=== PATIENT | female | born 1945 | race African-American/Black ===

== ENCOUNTER 2021-04-06 19:15 | Inpatient (IN) | payer OTHER ==
[2021-04-06] MEDS ORDERED: LACTATED RINGERS SOLUTION 1000 ML INFUS.BAG IV ONE ×2 (20:57→22:01)
[2021-04-06] MEDS ORDERED: PIPERACILLIN/TAZOB 4.5 GM 4.5 GM in DEXTROSE 5%-WATER 100 ML IVPB ONE (20:58)
[2021-04-06] MEDS ORDERED: VANCOMYCIN 1 GM in D5W (PRE-DOCKED) 1,000 MG/250 ML IVPB ONE (20:58)
[2021-04-06 21:24] LABS: VENOUS BASE EXCESS 5.5 mmol/L (-2-2); VENOUS O2 SATURATION 97.8 % (70-80); VENOUS PCO2 39.6 mmHg (38-52); VENOUS PH 7.487 (7.310-7.410)
[2021-04-06 21:26] LABS: INR 1.64 (0.83-1.09); PROTHROMBIN TIME (PATIENT) 19.9 SEC (9.7-13.0)
[2021-04-06 21:27] LABS: EPI CELLS 5 /uL (0-25.1); HEMATOCRIT 27.3 % (32.4-45.2); HEMOGLOBIN 9.5 GM/dL (10.7-15.3); HYALINE CASTS 4 /uL (0-3.1); MCH 25.8 pg (25.7-33.7); MCHC 34.9 g/dl (32.0-36.0); MEAN CELL VOLUME 73.9 fl (80-96); MEAN PLT VOLUME 10.6 fl (7.5-11.1); PLATELET COUNT 82 10^3/uL (134-434); RDW 14.6 % (11.6-15.6); URINE APPEARANCE CLOUDY; URINE BACTERIA 2259 /uL (0-1359); URINE BILIRUBIN 1+ (NEGATIVE); URINE COLOR DK YELLOW; URINE GLUCOSE (UA) NEGATIVE (NEGATIVE); URINE KETONE NEGATIVE (NEGATIVE); URINE LEUK ESTERASE NEGATIVE (NEGATIVE); URINE NITRITE NEGATIVE (NEGATIVE); URINE PROTEIN 1+ (NEGATIVE); URINE WBC 8 /uL (0-25.8)
[2021-04-06 21:28] LABS: ACTIVATED PTT 24.7 SECONDS (25.2-36.5)
[2021-04-06 21:37] LABS: CHLORIDE 85 mmol/L (98-107); SODIUM 127 mmol/L (136-145)
[2021-04-06 21:40] LABS: ALBUMIN 1.6 g/dl (3.4-5.0); ANION GAP 16 MMOL/L (8-16); BLOOD UREA NITROGEN 65.4 mg/dL (7-18); CALCIUM 7.6 mg/dL (8.5-10.1); CO2 26 mmol/L (21-32); GLUCOSE,RANDOM 104 mg/dL (74-106)
[2021-04-06 21:43] LABS: CREATININE 2.2 mg/dL (0.55-1.3); SGPT/ALT 169 U/L (13-61)
[2021-04-06 21:44] LABS: BILIRUBIN,TOTAL 5.4 mg/dL (0.2-1); SGOT/AST 334 U/L (15-37)
[2021-04-06 21:46] LABS: ALK PHOS 213 U/L (45-117)
[2021-04-06 21:47] LABS: WHITE BLOOD COUNT 31.3 K/mm3 (4.0-10.0)
[2021-04-06] MEDS ORDERED: PIPERACILLIN/TAZOB 4.5 GM 4.5 GM/100 ML BAG IVPB ONE (21:54)
[2021-04-06 22:15] LABS: BILIRUBIN,DIRECT 3.8 mg/dL (0.0-0.2)
[2021-04-06 22:21] LABS: YEAST NONE SEEN (NEGATIVE)
[2021-04-06] MEDS ORDERED: ASPIRIN 81 MG CHEWABLE TABLETS PO ONE (22:29)
[2021-04-06 23:10] LABS: ANISOCYTOSIS 1+; MACROCYTOSIS 0; PLATELET ESTIMATE DECREASED; TARGET CELLS 2+
[2021-04-06] MEDS ORDERED: VANCOMYCIN 1 GRAM (PRE-DOCKED) 1,000 MG/250 ML BAG IVPB ONE (23:13)
[2021-04-06] MEDS ORDERED: ASPIRIN 81 MG CHEWABLE TABLETS ONE ×2 (23:13→23:14)
[2021-04-07 00:53] LABS: LACTIC ACID 2.7 mmol/L (0.4-2.0)
[2021-04-07 02:03] LABS: ALBUMIN 1.4 g/dl (3.4-5.0); BLOOD UREA NITROGEN 66.5 mg/dL (7-18)
[2021-04-07 02:05] LABS: CREATININE 2.1 mg/dL (0.55-1.3)
[2021-04-07 02:07] LABS: BILIRUBIN,TOTAL 5.2 mg/dL (0.2-1); TOT PROT 5.3 g/dl (6.4-8.2)
[2021-04-07 02:49] LABS: BASO % 0.1 % (0-2.0); EOS % 1.3 % (0-4.5); HEMOGLOBIN 8.2 GM/dL (10.7-15.3); LYMPH % 2.4 % (8-40); MCH 25.2 pg (25.7-33.7); MCHC 34.3 g/dl (32.0-36.0); MEAN CELL VOLUME 73.6 fl (80-96); MEAN PLT VOLUME 10.2 fl (7.5-11.1); NEUT % 92.2 % (42.8-82.8); PLATELET COUNT 78 10^3/uL (134-434); RBC 3.26 M/mm3 (3.60-5.2); RDW 14.5 % (11.6-15.6); WHITE BLOOD COUNT 20.5 K/mm3 (4.0-10.0)
[2021-04-07] MEDS: DEXTROSE 5%-NORMAL SALINE 1,000 ML IV SCH ×2 (04:10→08:24)
[2021-04-07] MEDS ORDERED: PIPERACILLIN/TAZOB 2.25 GM 2.25 GM in DEXTROSE 5%-WATER - 50 ML IVPB SCH (06:00)
[2021-04-07 06:10] LABS: CHLORIDE 89 mmol/L (98-107); SODIUM 129 mmol/L (136-145)
[2021-04-07 06:13] LABS: ALBUMIN 1.2 g/dl (3.4-5.0); ANION GAP 16 MMOL/L (8-16); BLOOD UREA NITROGEN 63.9 mg/dL (7-18); CO2 25 mmol/L (21-32); GLUCOSE,RANDOM 177 mg/dL (74-106)
[2021-04-07 06:16] LABS: BASO % 0.1 % (0-2.0); CREATININE 2.2 mg/dL (0.55-1.3); EOS % 0.3 % (0-4.5); HEMATOCRIT 22.7 % (32.4-45.2); HEMOGLOBIN 7.8 GM/dL (10.7-15.3); LYMPH % 4.6 % (8-40); MCH 25.6 pg (25.7-33.7); MCHC 34.6 g/dl (32.0-36.0); MEAN CELL VOLUME 74.2 fl (80-96); MEAN PLT VOLUME 10.1 fl (7.5-11.1); MONO % 22.3 % (3.8-10.2); NEUT % 72.7 % (42.8-82.8); PLATELET COUNT 60 10^3/uL (134-434); RBC 3.06 M/mm3 (3.60-5.2); RDW 14.4 % (11.6-15.6); SGOT/AST 260 U/L (15-37); SGPT/ALT 139 U/L (13-61); WHITE BLOOD COUNT 13.4 K/mm3 (4.0-10.0)
[2021-04-07 06:18] LABS: TOT PROT 4.6 g/dl (6.4-8.2)
[2021-04-07] MEDS ORDERED: PIPERACILLIN/TAZOB 2.25 GM 2.25 GM/50 ML BAG IVPB ONE ×3 (06:33→15:54)
[2021-04-07] MEDS: PIPERACILLIN/TAZOB 2.25 GM 2.25 GM in DEXTROSE 5%-WATER - 50 ML IVPB SCH ×4 (06:39→21:42)
[2021-04-07 06:50] LABS: ANISOCYTOSIS 0; MACROCYTOSIS 0; OVALOCYTE 1+; PLATELET ESTIMATE DECREASED; TARGET CELLS 1+
[2021-04-07 07:15] LABS: ALK PHOS 229 U/L (45-117); CALCIUM 6.9 mg/dL (8.5-10.1)
[2021-04-07] MEDS: KCL 10 MEQ IVPB 10 MEQ/100 ML INFUS.BAG IVPB SCH ×4 (08:05→19:35)
[2021-04-07] MEDS ORDERED: SODIUM CHLORIDE 250 ML IV STA (08:14)
[2021-04-07] MEDS ORDERED: KCL 10 MEQ IVPB 20 MEQ/200 ML INFUS.BAG IVPB ONE (08:38)
[2021-04-07 09:35] LABS: ANISOCYTOSIS 0; MACROCYTOSIS 0; PLATELET ESTIMATE DECREASED
[2021-04-07 09:39] LABS: TARGET CELLS 3+
[2021-04-07 14:46] LABS: RETICULOCYTES 0.75 % (0.5-1.5)
[2021-04-07 15:25] LABS: HEMOGLOBIN 8.3 GM/dL (10.7-15.3); MCH 25.7 pg (25.7-33.7); MCHC 34.5 g/dl (32.0-36.0); MEAN CELL VOLUME 74.4 fl (80-96); MEAN PLT VOLUME 9.5 fl (7.5-11.1); RBC 3.22 M/mm3 (3.60-5.2); RDW 14.2 % (11.6-15.6)
[2021-04-07 15:33] LABS: IRON SERUM 11 ug/dL (50-175)
[2021-04-07 15:38] LABS: TOTAL IRON BINDING CAPACITY 95 ug/dL (250-450)
[2021-04-07 15:39] LABS: BLOOD UREA NITROGEN 64.6 mg/dL (7-18); CALCIUM 7.3 mg/dL (8.5-10.1); MAGNESIUM 2.7 mg/dL (1.8-2.4)
[2021-04-07 16:32] LABS: PLATELET COUNT 46 10^3/uL (134-434)
[2021-04-07] MEDS ORDERED: SODIUM CHLORIDE 1,000 ML IV STA (16:52)
[2021-04-07] MEDS ORDERED: SODIUM CHLORIDE 1,000 ML with POTASSIUM CHLORIDE 10 MEQ IV SCH ×2 (17:15→18:12)
[2021-04-07] MEDS: SODIUM CHLORIDE 1,000 ML IV SCH ×2 (19:49→19:52)
[2021-04-07] MEDS: POTASSIUM CHLORIDE TABS 20 MEQ TABLET.ER (FP) PO SCH ×2 (19:50→21:42)
[2021-04-07] MEDS ORDERED: PIPERACILLIN/TAZOBACTAM 2.25 GM VIAL IVPB ONE (21:34)
[2021-04-07] MEDS ORDERED: DEXTROSE 5%-WATER - 50 ML IVPB ONE (21:34)
[2021-04-07] MEDS: CHLORHEXIDINE GLUCONATE 4% CLEANSER FOR DECOLONIZATION TP SCH (21:43)
[2021-04-07] MEDS: MUPIROCIN 2% TOPICAL OINTMENT FOR DECOLONIZATION NS SCH (21:43)
[2021-04-07 21:48] LABS: INR 1.61 (0.83-1.09); PROTHROMBIN TIME (PATIENT) 19.2 SEC (9.7-13.0)
[2021-04-07 21:51] LABS: ACTIVATED PTT 20.7 SECONDS (25.2-36.5)
[2021-04-07] MEDS ORDERED: MORPHINE SULFATE 2 MG/ML VIAL IVPUSH ONE (22:05)
[2021-04-07 22:49] LABS: HIV INTERPRETATION NEGATIVE (NEGATIVE)
[2021-04-07] MEDS ORDERED: VANCOMYCIN 1 GM in D5W (PRE-DOCKED) 1,000 MG/250 ML IVPB SCH (23:00)
[2021-04-07] MEDS ORDERED: VANCOMYCIN 1 GRAM (PRE-DOCKED) 1,000 MG/250 ML BAG IVPB ONE (23:00)
[2021-04-08] MEDS ORDERED: PIPERACILLIN/TAZOBACTAM 2.25 GM VIAL IVPB ONE ×4 (00:56→21:21)
[2021-04-08] MEDS ORDERED: DEXTROSE 5%-WATER - 50 ML IVPB ONE ×4 (00:56→21:21)
[2021-04-08] MEDS: SODIUM CHLORIDE 1,000 ML IV SCH ×3 (01:44→22:47)
[2021-04-08] MEDS: PIPERACILLIN/TAZOB 2.25 GM 2.25 GM in DEXTROSE 5%-WATER - 50 ML IVPB SCH ×4 (02:32→21:22)
[2021-04-08 05:26] VITALS: BMI 25.0
[2021-04-08] MEDS ORDERED: SODIUM CHLORIDE 500 ML IV STA (05:41)
[2021-04-08 06:23] LABS: HEMATOCRIT 21.9 % (32.4-45.2); HEMOGLOBIN 7.6 GM/dL (10.7-15.3); MCH 26.3 pg (25.7-33.7); MCHC 34.7 g/dl (32.0-36.0); MEAN CELL VOLUME 75.9 fl (80-96); MEAN PLT VOLUME 10.7 fl (7.5-11.1); PLATELET COUNT 48 10^3/uL (134-434); RBC 2.88 M/mm3 (3.60-5.2); RDW 14.3 % (11.6-15.6); WHITE BLOOD COUNT 17.7 K/mm3 (4.0-10.0)
[2021-04-08 06:35] LABS: INR 1.63 (0.83-1.09); PROTHROMBIN TIME (PATIENT) 19.4 SEC (9.7-13.0)
[2021-04-08 06:52] LABS: ALBUMIN 1.2 g/dl (3.4-5.0)
[2021-04-08 06:53] LABS: ALBUMIN 1.2 g/dl (3.4-5.0); CALCIUM 7.1 mg/dL (8.5-10.1); MAGNESIUM 2.3 mg/dL (1.8-2.4)
[2021-04-08 06:55] LABS: BILIRUBIN,DIRECT 4.7 mg/dL (0.0-0.2)
[2021-04-08 06:56] LABS: CREATININE 1.4 mg/dL (0.55-1.3); PHOSPHOROUS 3.1 mg/dL (2.5-4.9)
[2021-04-08 06:57] LABS: BILIRUBIN,TOTAL 5.3 mg/dL (0.2-1); TOT PROT 4.8 g/dl (6.4-8.2)
[2021-04-08 06:58] LABS: BILIRUBIN,TOTAL 5.4 mg/dL (0.2-1); TOT PROT 4.8 g/dl (6.4-8.2)
[2021-04-08] MEDS ORDERED: POTASSIUM CHLORIDE TABS 20 MEQ TABLET.ER (FP) PO ONE ×2 (08:45→12:48)
[2021-04-08] MEDS: KCL 10 MEQ IVPB 10 MEQ/100 ML INFUS.BAG IVPB SCH ×3 (09:40→11:30)
[2021-04-08] MEDS: MUPIROCIN 2% TOPICAL OINTMENT FOR DECOLONIZATION NS SCH ×2 (10:04→21:29)
[2021-04-08] MEDS: CHLORHEXIDINE GLUCONATE 4% CLEANSER FOR DECOLONIZATION TP SCH (21:30)
[2021-04-08] MEDS ORDERED: MORPHINE SULFATE 2 MG/ML VIAL IM ONE (22:38)
[2021-04-08] MEDS ORDERED: MORPHINE SULFATE 2 MG/ML VIAL IVPUSH ONE ×2 (22:38)
[2021-04-09] MEDS ORDERED: LIDOCAINE VISCOUS 2% ORAL/TOP 15 ML UNIT-DOSE CUP MM PRN (01:26)
[2021-04-09] MEDS ORDERED: BENZOCAINE/MENTH/CETYLPYRD CL 1 EACH LOZENGE MM PRN (01:26)
[2021-04-09] MEDS: PIPERACILLIN/TAZOB 2.25 GM 2.25 GM in DEXTROSE 5%-WATER - 50 ML IVPB SCH ×2 (03:00→10:02)
[2021-04-09] MEDS ORDERED: PIPERACILLIN/TAZOBACTAM 2.25 GM VIAL IVPB ONE ×2 (03:31→09:59)
[2021-04-09] MEDS ORDERED: DEXTROSE 5%-WATER - 50 ML IVPB ONE ×4 (03:31→23:32)
[2021-04-09 05:58] LABS: HEMOGLOBIN 7.4 GM/dL (10.7-15.3); MCHC 35.1 g/dl (32.0-36.0); MEAN CELL VOLUME 74.2 fl (80-96); MEAN PLT VOLUME 10.8 fl (7.5-11.1); PLATELET COUNT 59 10^3/uL (134-434); RBC 2.83 M/mm3 (3.60-5.2); RDW 14.3 % (11.6-15.6)
[2021-04-09 05:59] LABS: INR 1.54 (0.83-1.09); PROTHROMBIN TIME (PATIENT) 18.7 SEC (9.7-13.0)
[2021-04-09] MEDS: SODIUM CHLORIDE 1,000 ML IV SCH ×2 (05:59→13:18)
[2021-04-09 06:21] LABS: ALBUMIN 1.2 g/dl (3.4-5.0); CALCIUM 7.1 mg/dL (8.5-10.1)
[2021-04-09 06:22] LABS: BLOOD UREA NITROGEN 34.7 mg/dL (7-18)
[2021-04-09 06:23] LABS: MAGNESIUM 2.1 mg/dL (1.8-2.4)
[2021-04-09 06:25] LABS: PHOSPHOROUS 2.2 mg/dL (2.5-4.9)
[2021-04-09 08:06] LABS: CARCINOEMBRYONIC ANTIGEN 1.8 ng/mL (0.0-4.7)
[2021-04-09] MEDS ORDERED: POTASSIUM CHLORIDE TABS 20 MEQ TABLET.ER (FP) PO ONE (08:55)
[2021-04-09] MEDS ORDERED: KCL 10 MEQ IVPB 10 MEQ/100 ML INFUS.BAG IVPB SCH (09:00)
[2021-04-09] MEDS: MUPIROCIN 2% TOPICAL OINTMENT FOR DECOLONIZATION NS SCH ×2 (10:02→21:01)
[2021-04-09 12:10] LABS: TRANSGLUTAMINASE IGA < 2 U/mL (0-3); TRANSGLUTAMINASE IGG < 2 U/mL (0-5)
[2021-04-09] MEDS ORDERED: VANCOMYCIN 1,000 MG in DEXTROSE 5%-WATER - 250 ML IVPB ONE (14:16)
[2021-04-09] MEDS ORDERED: VANCOMYCIN 1 GRAM (PRE-DOCKED) 1,000 MG/250 ML BAG IVPB ONE (14:22)
[2021-04-09] MEDS: MORPHINE SULFATE 2 MG/ML VIAL IVPUSH PRN ×2 (14:56→20:55)
[2021-04-09] MEDS ORDERED: IBUPROFEN 400 MG TABLET (FP) PO ONE (16:51)
[2021-04-09] MEDS ORDERED: IBUPROFEN 800 MG/8 ML IJ IVPB ONE (17:13)
[2021-04-09] MEDS ORDERED: PIPERACILLIN/TAZOBACTAM 3.375 GM VIAL IVPB ONE ×2 (17:22→23:32)
[2021-04-09] MEDS: PIPERACILLIN/TAZOB 3.375 GM 3.375 GM in DEXTROSE 5%-WATER - 50 ML IVPB SCH (17:30)
[2021-04-09] MEDS ORDERED: POTASSIUM PHOSPHATE 15 MM in SODIUM CHLORIDE 250 ML IVPB ONE (18:16)
[2021-04-09 19:38] LABS: EOS % 0.2 % (0-4.5); HEMATOCRIT 18.2 % (32.4-45.2); LYMPH % 2.3 % (8-40); MEAN CELL VOLUME 74.3 fl (80-96); MEAN PLT VOLUME 9.4 fl (7.5-11.1); MONO % 2.4 % (3.8-10.2); NEUT % 95.1 % (42.8-82.8); PLATELET COUNT 71 10^3/uL (134-434); RBC 2.44 M/mm3 (3.60-5.2); RDW 14.6 % (11.6-15.6); WHITE BLOOD COUNT 15.9 K/mm3 (4.0-10.0)
[2021-04-09 19:41] LABS: HEMOGLOBIN 6.4 GM/dL (10.7-15.3)
[2021-04-09] MEDS ORDERED: HEPARIN NA (PORCINE) 5,000 UNITS/ML 1ML VIAL IVPUSH PRN ×2 (19:53)
[2021-04-09 19:54] LABS: INR 1.46 (0.83-1.09); PROTHROMBIN TIME (PATIENT) 17.5 SEC (9.7-13.0)
[2021-04-09 19:57] LABS: ACTIVATED PTT 22.3 SECONDS (25.2-36.5)
[2021-04-09] MEDS ORDERED: HEPARIN INFUSION - 25,000 UNITS/500 ML INFUS.BAG IVPB SCH (20:00)
[2021-04-09] MEDS: CHLORHEXIDINE GLUCONATE 4% CLEANSER FOR DECOLONIZATION TP SCH (21:01)
[2021-04-09 21:26] LABS: ANISOCYTOSIS 1+; MACROCYTOSIS 0; PLATELET ESTIMATE DECREASED; TARGET CELLS 2+
[2021-04-10] MEDS: PIPERACILLIN/TAZOB 3.375 GM 3.375 GM in DEXTROSE 5%-WATER - 50 ML IVPB SCH ×3 (02:05→18:45)
[2021-04-10 03:38] LABS: BASO % 0.1 % (0-2.0); EOS % 0.2 % (0-4.5); HEMATOCRIT 23.2 % (32.4-45.2); LYMPH % 3.8 % (8-40); MCH 26.3 pg (25.7-33.7); MCHC 34.8 g/dl (32.0-36.0); MEAN CELL VOLUME 75.7 fl (80-96); MEAN PLT VOLUME 9.1 fl (7.5-11.1); MONO % 3.3 % (3.8-10.2); NEUT % 92.6 % (42.8-82.8); PLATELET COUNT 70 10^3/uL (134-434); RBC 3.06 M/mm3 (3.60-5.2); RDW 15.7 % (11.6-15.6); WHITE BLOOD COUNT 17.9 K/mm3 (4.0-10.0)
[2021-04-10 05:08] LABS: ANISOCYTOSIS 2+; MACROCYTOSIS 1+; PLATELET ESTIMATE DECREASED; TARGET CELLS 1+
[2021-04-10 06:49] LABS: BASO % 0.4 % (0-2.0); EOS % 0.2 % (0-4.5); LYMPH % 2.8 % (8-40); MCH 26.9 pg (25.7-33.7); MCHC 35.2 g/dl (32.0-36.0); MEAN CELL VOLUME 76.4 fl (80-96); MONO % 4.1 % (3.8-10.2); NEUT % 92.5 % (42.8-82.8); PLATELET COUNT 59 10^3/uL (134-434); RBC 2.61 M/mm3 (3.60-5.2); RDW 15.5 % (11.6-15.6); WHITE BLOOD COUNT 14.7 K/mm3 (4.0-10.0)
[2021-04-10 06:55] LABS: INR 1.78 (0.83-1.09)
[2021-04-10 07:34] LABS: ALK PHOS 207 U/L (45-117); ANION GAP 12 MMOL/L (8-16); BILIRUBIN,TOTAL 2.2 mg/dL (0.2-1); BLOOD UREA NITROGEN 18.4 mg/dL (7-18); CALCIUM 6.3 mg/dL (8.5-10.1); CHLORIDE 108 mmol/L (98-107); CO2 18 mmol/L (21-32); CREATININE 0.6 mg/dL (0.55-1.3); GLUCOSE,RANDOM 175 mg/dL (74-106); MAGNESIUM 1.5 mg/dL (1.8-2.4); PHOSPHOROUS 2.7 mg/dL (2.5-4.9); SGOT/AST 75 U/L (15-37); SGPT/ALT 101 U/L (13-61); SODIUM 137 mmol/L (136-145); TOT PROT 4.8 g/dl (6.4-8.2)
[2021-04-10] MEDS ORDERED: POTASSIUM CHLORIDE TABS 20 MEQ TABLET.ER (FP) PO ONE ×2 (09:15→17:55)
[2021-04-10 09:19] LABS: ANISOCYTOSIS 2+; MACROCYTOSIS 0; PLATELET ESTIMATE DECREASED; TARGET CELLS 1+
[2021-04-10] MEDS: MORPHINE SULFATE 2 MG/ML VIAL IVPUSH PRN ×4 (09:25→21:08)
[2021-04-10] MEDS ORDERED: PIPERACILLIN/TAZOBACTAM 3.375 GM VIAL IVPB ONE ×2 (09:26→18:33)
[2021-04-10] MEDS ORDERED: PT OWN MED DRAWER 7, Y5N ONE (09:26)
[2021-04-10] MEDS ORDERED: DEXTROSE 5%-WATER - 50 ML IVPB ONE ×2 (09:26→18:33)
[2021-04-10 09:27] LABS: ACTIVATED PTT > 400.0 SECONDS (25.2-36.5)
[2021-04-10 13:13] LABS: HEMATOCRIT 24.4 % (32.4-45.2); HEMOGLOBIN 8.5 GM/dL (10.7-15.3); MCH 26.1 pg (25.7-33.7); MCHC 34.6 g/dl (32.0-36.0); MEAN CELL VOLUME 75.3 fl (80-96); MEAN PLT VOLUME 8.9 fl (7.5-11.1); PLATELET COUNT 73 10^3/uL (134-434); RBC 3.24 M/mm3 (3.60-5.2); RDW 15.4 % (11.6-15.6); WHITE BLOOD COUNT 15.8 K/mm3 (4.0-10.0)
[2021-04-10] MEDS: MUPIROCIN 2% TOPICAL OINTMENT FOR DECOLONIZATION NS SCH ×2 (13:27→21:11)
[2021-04-10] MEDS: SODIUM CHLORIDE 1,000 ML IV SCH ×2 (14:00→18:03)
[2021-04-10] MEDS: VANCOMYCIN 1 GRAM (PRE-DOCKED) 1,000 MG/250 ML BAG IVPB SCH (14:00)
[2021-04-10 17:49] LABS: MCH 26.1 pg (25.7-33.7); MCHC 34.6 g/dl (32.0-36.0); MEAN CELL VOLUME 75.5 fl (80-96); MEAN PLT VOLUME 9.5 fl (7.5-11.1); PLATELET COUNT 71 10^3/uL (134-434); RBC 3.05 M/mm3 (3.60-5.2); RDW 15.2 % (11.6-15.6); WHITE BLOOD COUNT 16.6 K/mm3 (4.0-10.0)
[2021-04-10] MEDS ORDERED: LORazepam 2 MG/ML SDV VIAL IVPUSH ONE (17:51)
[2021-04-10] MEDS ORDERED: ACETAMINOPHEN 1000 MG/100 ML VIAL (NON FORMULARY) IVPB ONE (17:52)
[2021-04-10] MEDS ORDERED: MAGNESIUM OXIDE 400 MG TABLET (FP) PO ONE (17:53)
[2021-04-10] MEDS ORDERED: HEPARIN - 25,000 UNIT in SODIUM CHLORIDE 495 ML IV SCH (20:30)
[2021-04-10 20:38] LABS: BASO % 0.1 % (0-2.0); EOS % 0.1 % (0-4.5); HEMATOCRIT 21.5 % (32.4-45.2); HEMOGLOBIN 7.5 GM/dL (10.7-15.3); LYMPH % 1.4 % (8-40); MCH 26.1 pg (25.7-33.7); MCHC 34.6 g/dl (32.0-36.0); MEAN CELL VOLUME 75.3 fl (80-96); MONO % 0.9 % (3.8-10.2); NEUT % 97.5 % (42.8-82.8); PLATELET COUNT 70 10^3/uL (134-434); RBC 2.86 M/mm3 (3.60-5.2); RDW 15.3 % (11.6-15.6); WHITE BLOOD COUNT 16.9 K/mm3 (4.0-10.0)
[2021-04-10 20:44] LABS: INR 1.47 (0.83-1.09); PROTHROMBIN TIME (PATIENT) 17.9 SEC (9.7-13.0)
[2021-04-10 20:47] LABS: ACTIVATED PTT 27.1 SECONDS (25.2-36.5)
[2021-04-10] MEDS: CHLORHEXIDINE GLUCONATE 4% CLEANSER FOR DECOLONIZATION TP SCH (21:11)
[2021-04-10 21:44] LABS: ANISOCYTOSIS 1+; MACROCYTOSIS 1+; PLATELET ESTIMATE DECREASED; TARGET CELLS 2+
[2021-04-11 00:26] LABS: BASO % 0.1 % (0-2.0); EOS % 0.1 % (0-4.5); HEMATOCRIT 21.9 % (32.4-45.2); HEMOGLOBIN 7.6 GM/dL (10.7-15.3); LYMPH % 1.7 % (8-40); MCH 26.3 pg (25.7-33.7); MCHC 34.7 g/dl (32.0-36.0); MEAN CELL VOLUME 75.6 fl (80-96); MEAN PLT VOLUME 9.8 fl (7.5-11.1); MONO % 1.8 % (3.8-10.2); NEUT % 96.3 % (42.8-82.8); PLATELET COUNT 67 10^3/uL (134-434); RDW 15.3 % (11.6-15.6); WHITE BLOOD COUNT 22.2 K/mm3 (4.0-10.0)
[2021-04-11] MEDS ORDERED: PIPERACILLIN/TAZOBACTAM 3.375 GM VIAL IVPB ONE ×3 (00:42→18:59)
[2021-04-11] MEDS ORDERED: DEXTROSE 5%-WATER - 50 ML IVPB ONE ×3 (00:43→19:00)
[2021-04-11] MEDS: PIPERACILLIN/TAZOB 3.375 GM 3.375 GM in DEXTROSE 5%-WATER - 50 ML IVPB SCH ×3 (01:45→19:03)
[2021-04-11 02:06] LABS: HEP B CORE AB, TOT Negative (Negative)
[2021-04-11 03:17] LABS: ANISOCYTOSIS 2+; MACROCYTOSIS 0; PLATELET ESTIMATE DECREASED
[2021-04-11] MEDS: MORPHINE SULFATE 2 MG/ML VIAL IVPUSH PRN (04:35)
[2021-04-11 07:34] LABS: HEMATOCRIT 20.4 % (32.4-45.2); HEMOGLOBIN 7.2 GM/dL (10.7-15.3); MCH 26.9 pg (25.7-33.7); MCHC 35.1 g/dl (32.0-36.0); MEAN CELL VOLUME 76.4 fl (80-96); MEAN PLT VOLUME 9.7 fl (7.5-11.1); PLATELET COUNT 79 10^3/uL (134-434); RBC 2.68 M/mm3 (3.60-5.2); RDW 14.9 % (11.6-15.6); WHITE BLOOD COUNT 20.7 K/mm3 (4.0-10.0)
[2021-04-11 07:38] LABS: INR 1.43 (0.83-1.09); PROTHROMBIN TIME (PATIENT) 17.4 SEC (9.7-13.0)
[2021-04-11 07:41] LABS: ACTIVATED PTT 30.9 SECONDS (25.2-36.5)
[2021-04-11 08:26] LABS: ALBUMIN 1.1 g/dl (3.4-5.0); BILIRUBIN,TOTAL 2.2 mg/dL (0.2-1); BLOOD UREA NITROGEN 16.7 mg/dL (7-18); CREATININE 0.8 mg/dL (0.55-1.3); MAGNESIUM 1.4 mg/dL (1.8-2.4); PHOSPHOROUS 2.8 mg/dL (2.5-4.9); TOT PROT 5.2 g/dl (6.4-8.2)
[2021-04-11] MEDS ORDERED: MAGNESIUM SULFATE IN WATER 2 GM/50 ML IVPB IVPB ONE (10:00)
[2021-04-11 13:34] LABS: HEMATOCRIT 21.9 % (32.4-45.2); HEMOGLOBIN 7.7 GM/dL (10.7-15.3); MCH 26.8 pg (25.7-33.7); MCHC 35.2 g/dl (32.0-36.0); MEAN CELL VOLUME 76.3 fl (80-96); MEAN PLT VOLUME 9.7 fl (7.5-11.1); PLATELET COUNT 84 10^3/uL (134-434); RBC 2.87 M/mm3 (3.60-5.2); RDW 15.2 % (11.6-15.6); WHITE BLOOD COUNT 19.6 K/mm3 (4.0-10.0)
[2021-04-11 15:46] LABS: BASO % 0.1 % (0-2.0); EOS % 0.2 % (0-4.5); HEMATOCRIT 19.5 % (32.4-45.2); LYMPH % 1.5 % (8-40); MCH 26.9 pg (25.7-33.7); MCHC 35.5 g/dl (32.0-36.0); MEAN PLT VOLUME 9.8 fl (7.5-11.1); MONO % 2.9 % (3.8-10.2); NEUT % 95.3 % (42.8-82.8); PLATELET COUNT 85 10^3/uL (134-434); RBC 2.57 M/mm3 (3.60-5.2); RDW 14.7 % (11.6-15.6); WHITE BLOOD COUNT 20.1 K/mm3 (4.0-10.0)
[2021-04-11 15:50] LABS: HEMOGLOBIN 6.9 GM/dL (10.7-15.3)
[2021-04-11 16:19] LABS: ANISOCYTOSIS 2+; MACROCYTOSIS 0; PLATELET ESTIMATE DECREASED; TARGET CELLS 1+
[2021-04-11] MEDS: VANCOMYCIN 1 GRAM (PRE-DOCKED) 1,000 MG/250 ML BAG IVPB SCH (21:20)
[2021-04-11] MEDS: SODIUM CHLORIDE 1,000 ML IV SCH (21:21)
[2021-04-11] MEDS: MUPIROCIN 2% TOPICAL OINTMENT FOR DECOLONIZATION NS SCH (21:21)
[2021-04-11] MEDS: CHLORHEXIDINE GLUCONATE 4% CLEANSER FOR DECOLONIZATION TP SCH (21:21)
[2021-04-12] MEDS ORDERED: PIPERACILLIN/TAZOBACTAM 3.375 GM VIAL IVPB ONE ×3 (00:57→17:44)
[2021-04-12] MEDS ORDERED: DEXTROSE 5%-WATER - 50 ML IVPB ONE ×3 (00:57→17:44)
[2021-04-12] MEDS: MORPHINE SULFATE 2 MG/ML VIAL IVPUSH PRN ×4 (01:02→22:40)
[2021-04-12] MEDS: PIPERACILLIN/TAZOB 3.375 GM 3.375 GM in DEXTROSE 5%-WATER - 50 ML IVPB SCH ×3 (01:03→17:48)
[2021-04-12 03:24] LABS: BASO % 0.1 % (0-2.0); EOS % 0.1 % (0-4.5); HEMATOCRIT 26.3 % (32.4-45.2); HEMOGLOBIN 9.2 GM/dL (10.7-15.3); LYMPH % 1.6 % (8-40); MCH 27.6 pg (25.7-33.7); MCHC 34.8 g/dl (32.0-36.0); MEAN CELL VOLUME 79.4 fl (80-96); MEAN PLT VOLUME 9.8 fl (7.5-11.1); MONO % 1.7 % (3.8-10.2); NEUT % 96.5 % (42.8-82.8); PLATELET COUNT 79 10^3/uL (134-434); RBC 3.31 M/mm3 (3.60-5.2); RDW 16.3 % (11.6-15.6); WHITE BLOOD COUNT 19.6 K/mm3 (4.0-10.0)
[2021-04-12 04:33] LABS: ANISOCYTOSIS 2+; MACROCYTOSIS 0; PLATELET ESTIMATE DECREASED; TARGET CELLS 2+
[2021-04-12 06:21] LABS: HEMATOCRIT 26.1 % (32.4-45.2); HEMOGLOBIN 9.3 GM/dL (10.7-15.3); MCHC 35.6 g/dl (32.0-36.0); MEAN CELL VOLUME 78.8 fl (80-96); MEAN PLT VOLUME 9.5 fl (7.5-11.1); PLATELET COUNT 75 10^3/uL (134-434); RBC 3.32 M/mm3 (3.60-5.2); WHITE BLOOD COUNT 18.7 K/mm3 (4.0-10.0)
[2021-04-12 06:28] LABS: INR 1.45 (0.83-1.09); PROTHROMBIN TIME (PATIENT) 17.3 SEC (9.7-13.0)
[2021-04-12 06:31] LABS: ACTIVATED PTT 22.5 SECONDS (25.2-36.5)
[2021-04-12 06:35] LABS: ALBUMIN 1.2 g/dl (3.4-5.0); BLOOD UREA NITROGEN 12.7 mg/dL (7-18)
[2021-04-12 06:36] LABS: MAGNESIUM 1.4 mg/dL (1.8-2.4)
[2021-04-12 06:38] LABS: CREATININE 0.6 mg/dL (0.55-1.3)
[2021-04-12 06:40] LABS: BILIRUBIN,TOTAL 1.9 mg/dL (0.2-1); TOT PROT 5.4 g/dl (6.4-8.2)
[2021-04-12] MEDS ORDERED: HEPARIN NA (PORCINE) 5,000 UNITS/ML 1ML VIAL IVPUSH PRN ×2 (08:15)
[2021-04-12] MEDS ORDERED: MAGNESIUM SULFATE IN WATER 2 GM/50 ML IVPB IVPB ONE (08:15)
[2021-04-12] MEDS ORDERED: POTASSIUM CHLORIDE 20 MEQ PREMIX IVPB 100 ML IVPB SCH (08:30)
[2021-04-12] MEDS: MUPIROCIN 2% TOPICAL OINTMENT FOR DECOLONIZATION NS SCH (09:07)
[2021-04-12] MEDS: KCL 10 MEQ IVPB 10 MEQ/100 ML INFUS.BAG IVPB SCH ×3 (09:12→11:40)
[2021-04-12] MEDS ORDERED: MAGNESIUM 1GM/D5W - 1 GM/100 ML IVPB IVPB ONE (09:15)
[2021-04-12] MEDS: HEPARIN SOD,PORK IN 0.45% NACL 25,000 UNIT/500 ML INFUS.BAG IVPB SCH (09:29)
[2021-04-12] MEDS ORDERED: ACETAMINOPHEN 1000 MG/100 ML VIAL (NON FORMULARY) IVPB ONE (09:56)
[2021-04-12] MEDS ORDERED: IBUPROFEN 800 MG/8 ML IJ IVPB ONE (10:45)
[2021-04-12] MEDS: VANCOMYCIN 1 GRAM (PRE-DOCKED) 1,000 MG/250 ML BAG IVPB SCH (13:00)
[2021-04-12] MEDS: SODIUM CHLORIDE 1,000 ML IV SCH (15:30)
[2021-04-12 16:21] LABS: BASO % 0.2 % (0-2.0); EOS % 0.1 % (0-4.5); HEMATOCRIT 23.5 % (32.4-45.2); HEMOGLOBIN 8.4 GM/dL (10.7-15.3); LYMPH % 1.4 % (8-40); MCH 27.8 pg (25.7-33.7); MCHC 35.5 g/dl (32.0-36.0); MEAN CELL VOLUME 78.4 fl (80-96); MEAN PLT VOLUME 9.8 fl (7.5-11.1); MONO % 2.4 % (3.8-10.2); NEUT % 95.9 % (42.8-82.8); PLATELET COUNT 73 10^3/uL (134-434); WHITE BLOOD COUNT 25.6 K/mm3 (4.0-10.0)
[2021-04-12 17:37] LABS: ANISOCYTOSIS 1+; MACROCYTOSIS 0; PLATELET ESTIMATE DECREASED; TARGET CELLS 2+
[2021-04-12 19:23] LABS: TOXIC GRANULATION 1+
[2021-04-12] MEDS ORDERED: PT OWN MED DRAWER 7, Y5N ONE ×2 (21:22→21:23)
[2021-04-12] MEDS: CHLORHEXIDINE GLUCONATE 4% CLEANSER FOR DECOLONIZATION TP SCH (21:32)
[2021-04-13 00:20] LABS: BASO % 0.5 % (0-2.0); EOS % 0.4 % (0-4.5); HEMATOCRIT 26.5 % (32.4-45.2); HEMOGLOBIN 9.3 GM/dL (10.7-15.3); MCH 27.8 pg (25.7-33.7); MCHC 35.3 g/dl (32.0-36.0); MEAN CELL VOLUME 78.7 fl (80-96); MEAN PLT VOLUME 9.7 fl (7.5-11.1); MONO % 1.4 % (3.8-10.2); NEUT % 94.7 % (42.8-82.8); PLATELET COUNT 79 10^3/uL (134-434); RBC 3.37 M/mm3 (3.60-5.2); RDW 16.4 % (11.6-15.6)
[2021-04-13] MEDS ORDERED: DEXTROSE 5%-WATER - 50 ML IVPB ONE ×3 (01:11→17:33)
[2021-04-13] MEDS ORDERED: PIPERACILLIN/TAZOBACTAM 3.375 GM VIAL IVPB ONE ×3 (01:11→17:33)
[2021-04-13] MEDS: PIPERACILLIN/TAZOB 3.375 GM 3.375 GM in DEXTROSE 5%-WATER - 50 ML IVPB SCH ×3 (01:14→17:36)
[2021-04-13 02:50] LABS: ANISOCYTOSIS 1+; HELMET CELLS 1+; MACROCYTOSIS 0; PLATELET ESTIMATE DECREASED; TARGET CELLS 1+
[2021-04-13] MEDS ORDERED: IBUPROFEN 800 MG/8 ML IJ IVPB ONE (03:00)
[2021-04-13 06:30] LABS: BASO % 0.1 % (0-2.0); EOS % 0.1 % (0-4.5); HEMATOCRIT 24.3 % (32.4-45.2); HEMOGLOBIN 8.6 GM/dL (10.7-15.3); LYMPH % 1.5 % (8-40); MCH 28.2 pg (25.7-33.7); MCHC 35.3 g/dl (32.0-36.0); MEAN CELL VOLUME 79.8 fl (80-96); MEAN PLT VOLUME 9.9 fl (7.5-11.1); MONO % 1.4 % (3.8-10.2); NEUT % 96.9 % (42.8-82.8); PLATELET COUNT 79 10^3/uL (134-434); RBC 3.04 M/mm3 (3.60-5.2); RDW 16.3 % (11.6-15.6); WHITE BLOOD COUNT 20.4 K/mm3 (4.0-10.0)
[2021-04-13 06:54] LABS: CHLORIDE 107 mmol/L (98-107); SODIUM 138 mmol/L (136-145)
[2021-04-13 06:57] LABS: ALBUMIN 1.1 g/dl (3.4-5.0); ANION GAP 11 MMOL/L (8-16); BLOOD UREA NITROGEN 16.1 mg/dL (7-18); CO2 21 mmol/L (21-32); GLUCOSE,RANDOM 122 mg/dL (74-106); MAGNESIUM 1.6 mg/dL (1.8-2.4)
[2021-04-13 07:00] LABS: CREATININE 0.7 mg/dL (0.55-1.3); PHOSPHOROUS 2.5 mg/dL (2.5-4.9); SGOT/AST 52 U/L (15-37); SGPT/ALT 75 U/L (13-61)
[2021-04-13 07:01] LABS: BILIRUBIN,TOTAL 1.7 mg/dL (0.2-1)
[2021-04-13 07:03] LABS: ALK PHOS 242 U/L (45-117)
[2021-04-13 07:39] LABS: CALCIUM 6.8 mg/dL (8.5-10.1)
[2021-04-13] MEDS ORDERED: POTASSIUM CHLORIDE TABS 20 MEQ TABLET.ER (FP) PO ONE (08:01)
[2021-04-13] MEDS: HEPARIN SOD,PORK IN 0.45% NACL 25,000 UNIT/500 ML INFUS.BAG IVPB SCH ×3 (08:30→19:27)
[2021-04-13] MEDS: KCL 10 MEQ IVPB 10 MEQ/100 ML INFUS.BAG IVPB SCH ×4 (08:57→12:42)
[2021-04-13] MEDS: MORPHINE SULFATE 2 MG/ML VIAL IVPUSH PRN ×3 (08:58→22:19)
[2021-04-13 11:23] LABS: TARGET CELLS 1+
[2021-04-13 11:24] LABS: PLATELET ESTIMATE DECREASED
[2021-04-13] MEDS: SODIUM CHLORIDE 1,000 ML IV SCH (12:00)
[2021-04-13] MEDS: LIDOCAINE VISCOUS 2% ORAL/TOP 15 ML UNIT-DOSE CUP MM PRN (12:23)
[2021-04-13] MEDS: VANCOMYCIN 1 GRAM (PRE-DOCKED) 1,000 MG/250 ML BAG IVPB SCH (12:43)
[2021-04-13] MEDS ORDERED: MAGNESIUM SULF 50% (8.12 MEQ/2 ML-1 GM VIAL) IVPB ONE (16:44)
[2021-04-13] MEDS: NYSTATIN 500,000 UNITS/5 ML SUSPENSION PO SCH ×2 (17:36→23:22)
[2021-04-13] MEDS: CHLORHEXIDINE GLUCONATE 4% CLEANSER FOR DECOLONIZATION TP SCH (23:00)
[2021-04-14] MEDS ORDERED: ONDANSETRON 4 MG/2 ML VIAL IVPUSH ONE (02:00)
[2021-04-14] MEDS ORDERED: PIPERACILLIN/TAZOBACTAM 3.375 GM VIAL IVPB ONE ×3 (02:03→16:57)
[2021-04-14] MEDS ORDERED: DEXTROSE 5%-WATER - 50 ML IVPB ONE ×3 (02:04→16:57)
[2021-04-14] MEDS: PIPERACILLIN/TAZOB 3.375 GM 3.375 GM in DEXTROSE 5%-WATER - 50 ML IVPB SCH ×3 (02:05→17:14)
[2021-04-14] MEDS: MORPHINE SULFATE 2 MG/ML VIAL IVPUSH PRN ×4 (02:06→21:34)
[2021-04-14] MEDS: NYSTATIN 500,000 UNITS/5 ML SUSPENSION PO SCH ×3 (05:25→17:14)
[2021-04-14 07:14] LABS: HEMATOCRIT 24.4 % (32.4-45.2); HEMOGLOBIN 8.7 GM/dL (10.7-15.3); MCH 28.3 pg (25.7-33.7); MCHC 35.6 g/dl (32.0-36.0); MEAN CELL VOLUME 79.7 fl (80-96); MEAN PLT VOLUME 10.6 fl (7.5-11.1); PLATELET COUNT 80 10^3/uL (134-434); RBC 3.06 M/mm3 (3.60-5.2); RDW 16.8 % (11.6-15.6); WHITE BLOOD COUNT 19.5 K/mm3 (4.0-10.0)
[2021-04-14 07:29] LABS: CHLORIDE 106 mmol/L (98-107); SODIUM 137 mmol/L (136-145)
[2021-04-14 07:34] LABS: ANION GAP 10 MMOL/L (8-16); BLOOD UREA NITROGEN 13.9 mg/dL (7-18); CO2 21 mmol/L (21-32)
[2021-04-14 07:35] LABS: ALBUMIN 1.1 g/dl (3.4-5.0); GLUCOSE,RANDOM 122 mg/dL (74-106); MAGNESIUM 1.6 mg/dL (1.8-2.4)
[2021-04-14 07:37] LABS: SGOT/AST 45 U/L (15-37); SGPT/ALT 67 U/L (13-61)
[2021-04-14 07:38] LABS: BILIRUBIN,TOTAL 1.6 mg/dL (0.2-1); CREATININE 0.7 mg/dL (0.55-1.3); PHOSPHOROUS 2.7 mg/dL (2.5-4.9); TOT PROT 5.3 g/dl (6.4-8.2)
[2021-04-14 07:39] LABS: ALK PHOS 241 U/L (45-117)
[2021-04-14] MEDS: HEPARIN SOD,PORK IN 0.45% NACL 25,000 UNIT/500 ML INFUS.BAG IVPB SCH (07:47)
[2021-04-14 07:48] LABS: CALCIUM 6.8 mg/dL (8.5-10.1)
[2021-04-14] MEDS ORDERED: MAGNESIUM SULF 50% (8.12 MEQ/2 ML-1 GM VIAL) IVPB ONE (09:16)
[2021-04-14] MEDS ORDERED: POTASSIUM CHLORIDE ORAL LIQUID 20 MEQ/15 ML PO ONE (09:16)
[2021-04-14] MEDS: LIDOCAINE VISCOUS 2% ORAL/TOP 15 ML UNIT-DOSE CUP MM PRN (11:32)
[2021-04-14] MEDS: VANCOMYCIN 1 GRAM (PRE-DOCKED) 1,000 MG/250 ML BAG IVPB SCH (11:32)
[2021-04-14] MEDS ORDERED: BENZOCAINE/MENTH/CETYLPYRD CL 1 EACH LOZENGE MM PRN (18:58)
[2021-04-14] MEDS ORDERED: LIDOCAINE VISCOUS 2% ORAL/TOP 15 ML UNIT-DOSE CUP MM PRN (18:58)
[2021-04-14] MEDS: NAPH,MB-DB/K PH,MBDB POWDER PACKET PO SCH (21:14)
[2021-04-14] MEDS: CHLORHEXIDINE GLUCONATE 4% CLEANSER FOR DECOLONIZATION TP SCH (21:14)
[2021-04-15] MEDS ORDERED: DEXTROSE 5%-WATER - 50 ML IVPB ONE ×3 (00:09→16:33)
[2021-04-15] MEDS ORDERED: PIPERACILLIN/TAZOBACTAM 3.375 GM VIAL IVPB ONE ×3 (00:09→16:33)
[2021-04-15] MEDS: MORPHINE SULFATE 2 MG/ML VIAL IVPUSH PRN ×5 (00:27→21:46)
[2021-04-15] MEDS: PIPERACILLIN/TAZOB 3.375 GM 3.375 GM in DEXTROSE 5%-WATER - 50 ML IVPB SCH ×3 (01:07→17:05)
[2021-04-15] MEDS: NYSTATIN 500,000 UNITS/5 ML SUSPENSION PO SCH ×5 (02:49→23:36)
[2021-04-15] MEDS ORDERED: PT OWN MED DRAWER 7, Y5N ONE ×2 (05:06→09:22)
[2021-04-15 07:28] LABS: HEMATOCRIT 23.2 % (32.4-45.2); MCH 27.4 pg (25.7-33.7); MCHC 34.6 g/dl (32.0-36.0); MEAN CELL VOLUME 79.1 fl (80-96); MEAN PLT VOLUME 9.5 fl (7.5-11.1); PLATELET COUNT 85 10^3/uL (134-434); RBC 2.93 M/mm3 (3.60-5.2); RDW 17.5 % (11.6-15.6); WHITE BLOOD COUNT 16.7 K/mm3 (4.0-10.0)
[2021-04-15] MEDS: NAPH,MB-DB/K PH,MBDB POWDER PACKET PO SCH ×2 (09:35→21:45)
[2021-04-15] MEDS: HEPARIN SOD,PORK IN 0.45% NACL 25,000 UNIT/500 ML INFUS.BAG IVPB SCH (11:14)
[2021-04-15] MEDS: VANCOMYCIN 1 GRAM (PRE-DOCKED) 1,000 MG/250 ML BAG IVPB SCH (11:18)
[2021-04-15] MEDS ORDERED: ACETAMINOPHEN 1000 MG/100 ML VIAL (NON FORMULARY) IVPB ONE (21:37)
[2021-04-15] MEDS: CHLORHEXIDINE GLUCONATE 4% CLEANSER FOR DECOLONIZATION TP SCH (21:45)
[2021-04-16] MEDS ORDERED: PIPERACILLIN/TAZOBACTAM 3.375 GM VIAL IVPB ONE ×3 (00:29→18:55)
[2021-04-16] MEDS ORDERED: DEXTROSE 5%-WATER - 50 ML IVPB ONE ×3 (00:29→18:55)
[2021-04-16] MEDS: PIPERACILLIN/TAZOB 3.375 GM 3.375 GM in DEXTROSE 5%-WATER - 50 ML IVPB SCH ×3 (02:35→18:14)
[2021-04-16] MEDS: MORPHINE SULFATE 2 MG/ML VIAL IVPUSH PRN ×3 (04:10→19:25)
[2021-04-16] MEDS: NYSTATIN 500,000 UNITS/5 ML SUSPENSION PO SCH ×4 (05:49→23:17)
[2021-04-16 07:16] LABS: HEMATOCRIT 22.6 % (32.4-45.2); HEMOGLOBIN 7.9 GM/dL (10.7-15.3); MCH 27.7 pg (25.7-33.7); MCHC 34.9 g/dl (32.0-36.0); MEAN CELL VOLUME 79.3 fl (80-96); MEAN PLT VOLUME 9.2 fl (7.5-11.1); PLATELET COUNT 101 10^3/uL (134-434); RBC 2.86 M/mm3 (3.60-5.2); RDW 17.5 % (11.6-15.6); WHITE BLOOD COUNT 15.2 K/mm3 (4.0-10.0)
[2021-04-16] MEDS ORDERED: PT OWN MED DRAWER 7, Y5N ONE ×2 (08:36→11:22)
[2021-04-16 09:28] LABS: BLOOD UREA NITROGEN 15.2 mg/dL (7-18); CREATININE 0.6 mg/dL (0.55-1.3); MAGNESIUM 1.5 mg/dL (1.8-2.4)
[2021-04-16] MEDS: NAPH,MB-DB/K PH,MBDB POWDER PACKET PO SCH ×2 (10:37→22:12)
[2021-04-16] MEDS ORDERED: POTASSIUM CHLORIDE ORAL LIQUID 20 MEQ/15 ML PO ONE (10:45)
[2021-04-16] MEDS ORDERED: MAGNESIUM SULF 50% (8.12 MEQ/2 ML-1 GM VIAL) IVPB ONE (10:45)
[2021-04-16] MEDS: VANCOMYCIN 1 GRAM (PRE-DOCKED) 1,000 MG/250 ML BAG IVPB SCH (11:45)
[2021-04-16] MEDS: HEPARIN SOD,PORK IN 0.45% NACL 25,000 UNIT/500 ML INFUS.BAG IVPB SCH (12:59)
[2021-04-16] MEDS: KCL 10 MEQ IVPB 10 MEQ/100 ML INFUS.BAG IVPB SCH ×2 (14:00→15:35)
[2021-04-16] MEDS: CHLORHEXIDINE GLUCONATE 4% CLEANSER FOR DECOLONIZATION TP SCH (22:12)
[2021-04-16] MEDS ORDERED: ACETAMINOPHEN 1000 MG/100 ML VIAL (NON FORMULARY) IVPB ONE (22:52)
[2021-04-17] MEDS ORDERED: PIPERACILLIN/TAZOBACTAM 3.375 GM VIAL IVPB ONE ×3 (01:41→17:38)
[2021-04-17] MEDS ORDERED: DEXTROSE 5%-WATER - 50 ML IVPB ONE ×3 (01:42→17:38)
[2021-04-17] MEDS: PIPERACILLIN/TAZOB 3.375 GM 3.375 GM in DEXTROSE 5%-WATER - 50 ML IVPB SCH ×3 (01:57→17:39)
[2021-04-17] MEDS ORDERED: PT OWN MED DRAWER 7, Y5N ONE (03:35)
[2021-04-17] MEDS: MORPHINE SULFATE 2 MG/ML VIAL IVPUSH PRN ×4 (05:25→17:39)
[2021-04-17] MEDS: NYSTATIN 500,000 UNITS/5 ML SUSPENSION PO SCH ×3 (05:28→17:39)
[2021-04-17 08:15] LABS: HEMOGLOBIN 7.6 GM/dL (10.7-15.3); MCH 27.7 pg (25.7-33.7); MCHC 34.6 g/dl (32.0-36.0); MEAN CELL VOLUME 79.9 fl (80-96); MEAN PLT VOLUME 9.1 fl (7.5-11.1); PLATELET COUNT 129 10^3/uL (134-434); RBC 2.76 M/mm3 (3.60-5.2); RDW 18.5 % (11.6-15.6); WHITE BLOOD COUNT 14.6 K/mm3 (4.0-10.0)
[2021-04-17 09:02] LABS: ALBUMIN 1.1 g/dl (3.4-5.0); BILIRUBIN,TOTAL 1.1 mg/dL (0.2-1); CALCIUM 7.2 mg/dL (8.5-10.1); CREATININE 0.5 mg/dL (0.55-1.3); MAGNESIUM 1.8 mg/dL (1.8-2.4); TOT PROT 5.2 g/dl (6.4-8.2)
[2021-04-17] MEDS: HEPARIN SOD,PORK IN 0.45% NACL 25,000 UNIT/500 ML INFUS.BAG IVPB SCH ×2 (09:23→19:20)
[2021-04-17] MEDS: NAPH,MB-DB/K PH,MBDB POWDER PACKET PO SCH ×2 (09:29→21:34)
[2021-04-17] MEDS ORDERED: POTASSIUM CHLORIDE TABS 20 MEQ TABLET.ER (FP) PO ONE ×2 (10:25→22:00)
[2021-04-17] MEDS ORDERED: MAGNESIUM SULF 50% (8.12 MEQ/2 ML-1 GM VIAL) IVPB ONE (10:26)
[2021-04-17] MEDS ORDERED: FUROSEMIDE 20 MG TABLET (FP) PO ONE (10:26)
[2021-04-17] MEDS: KCL 10 MEQ IVPB 10 MEQ/100 ML INFUS.BAG IVPB SCH ×3 (10:53→15:05)
[2021-04-18] MEDS ORDERED: PIPERACILLIN/TAZOBACTAM 3.375 GM VIAL IVPB ONE ×3 (05:43→18:16)
[2021-04-18] MEDS ORDERED: DEXTROSE 5%-WATER - 50 ML IVPB ONE ×3 (05:43→18:16)
[2021-04-18] MEDS: CHLORHEXIDINE GLUCONATE 4% CLEANSER FOR DECOLONIZATION TP SCH ×2 (05:55→22:06)
[2021-04-18] MEDS: NYSTATIN 500,000 UNITS/5 ML SUSPENSION PO SCH ×3 (05:55→18:32)
[2021-04-18] MEDS: PIPERACILLIN/TAZOB 3.375 GM 3.375 GM in DEXTROSE 5%-WATER - 50 ML IVPB SCH ×3 (05:55→18:32)
[2021-04-18] MEDS: MORPHINE SULFATE 2 MG/ML VIAL IVPUSH PRN ×4 (06:26→22:05)
[2021-04-18] MEDS ORDERED: IBUPROFEN 800 MG/8 ML IJ IVPB ONE (06:51)
[2021-04-18 07:36] LABS: HEMATOCRIT 20.2 % (32.4-45.2); MCH 27.7 pg (25.7-33.7); MCHC 34.8 g/dl (32.0-36.0); MEAN CELL VOLUME 79.4 fl (80-96); MEAN PLT VOLUME 8.9 fl (7.5-11.1); PLATELET COUNT 119 10^3/uL (134-434); RBC 2.55 M/mm3 (3.60-5.2); RDW 18.6 % (11.6-15.6); WHITE BLOOD COUNT 11.9 K/mm3 (4.0-10.0)
[2021-04-18 08:21] LABS: BLOOD UREA NITROGEN 14.1 mg/dL (7-18); CREATININE 0.7 mg/dL (0.55-1.3)
[2021-04-18] MEDS: HEPARIN SOD,PORK IN 0.45% NACL 25,000 UNIT/500 ML INFUS.BAG IVPB SCH ×2 (08:36→10:19)
[2021-04-18] MEDS: NAPH,MB-DB/K PH,MBDB POWDER PACKET PO SCH ×2 (10:15→22:10)
[2021-04-18] MEDS ORDERED: FUROSEMIDE 40 MG/4 ML INJECTABLE VIAL IVPUSH ONE (11:28)
[2021-04-19] MEDS ORDERED: PT OWN MED DRAWER 7, Y5N ONE (00:57)
[2021-04-19] MEDS: PIPERACILLIN/TAZOB 3.375 GM 3.375 GM in DEXTROSE 5%-WATER - 50 ML IVPB SCH ×3 (03:00→17:00)
[2021-04-19] MEDS: MORPHINE SULFATE 2 MG/ML VIAL IVPUSH PRN ×4 (04:23→21:03)
[2021-04-19] MEDS ORDERED: DEXTROSE 5%-WATER - 50 ML IVPB ONE ×3 (05:45→16:31)
[2021-04-19] MEDS ORDERED: PIPERACILLIN/TAZOBACTAM 3.375 GM VIAL IVPB ONE ×3 (05:45→16:31)
[2021-04-19] MEDS: NYSTATIN 500,000 UNITS/5 ML SUSPENSION PO SCH ×5 (05:48→23:24)
[2021-04-19] MEDS ORDERED: IBUPROFEN 800 MG/8 ML IJ IVPB ONE (06:28)
[2021-04-19 06:49] LABS: BASO % 0.5 % (0-2.0); EOS % 0.2 % (0-4.5); HEMATOCRIT 24.8 % (32.4-45.2); HEMOGLOBIN 8.9 GM/dL (10.7-15.3); LYMPH % 3.6 % (8-40); MCH 28.6 pg (25.7-33.7); MCHC 35.9 g/dl (32.0-36.0); MEAN CELL VOLUME 79.8 fl (80-96); MEAN PLT VOLUME 8.4 fl (7.5-11.1); MONO % 3.7 % (3.8-10.2); PLATELET COUNT 116 10^3/uL (134-434); RBC 3.11 M/mm3 (3.60-5.2); RDW 17.1 % (11.6-15.6); WHITE BLOOD COUNT 15.5 K/mm3 (4.0-10.0)
[2021-04-19 08:27] LABS: ALBUMIN 1.1 g/dl (3.4-5.0); BILIRUBIN,TOTAL 1.4 mg/dL (0.2-1); BLOOD UREA NITROGEN 14.4 mg/dL (7-18); CREATININE 0.6 mg/dL (0.55-1.3); TOT PROT 5.1 g/dl (6.4-8.2)
[2021-04-19] MEDS: HEPARIN SOD,PORK IN 0.45% NACL 25,000 UNIT/500 ML INFUS.BAG IVPB SCH ×2 (09:47→13:41)
[2021-04-19 10:17] LABS: ANISOCYTOSIS 2+; MACROCYTOSIS 1+; PLATELET ESTIMATE DECREASED; TARGET CELLS 1+
[2021-04-19] MEDS: NAPH,MB-DB/K PH,MBDB POWDER PACKET PO SCH ×2 (10:37→21:04)
[2021-04-19 10:54] LABS: INR 1.51 (0.83-1.09)
[2021-04-19 10:57] LABS: ACTIVATED PTT 45.7 SECONDS (25.2-36.5)
[2021-04-19] MEDS ORDERED: VANCOMYCIN 1,000 MG in DEXTROSE 5%-WATER - 250 ML IVPB SCH (11:00)
[2021-04-19] MEDS: KCL 10 MEQ IVPB 10 MEQ/100 ML INFUS.BAG IVPB SCH ×2 (11:55→12:16)
[2021-04-19] MEDS: HEPARIN NA (PORCINE) 5,000 UNITS/ML 1ML VIAL IVPUSH PRN (12:58)
[2021-04-19 18:18] LABS: INR 1.51 (0.83-1.09); PROTHROMBIN TIME (PATIENT) 18.1 SEC (9.7-13.0)
[2021-04-19 18:20] LABS: ACTIVATED PTT 57.4 SECONDS (25.2-36.5)
[2021-04-19] MEDS: CHLORHEXIDINE GLUCONATE 4% CLEANSER FOR DECOLONIZATION TP SCH (21:04)
[2021-04-19] MEDS: VANCOMYCIN IVPB SCH (23:23)
[2021-04-20] MEDS ORDERED: DEXTROSE 5%-WATER - 50 ML IVPB ONE ×3 (01:10→17:36)
[2021-04-20] MEDS ORDERED: PIPERACILLIN/TAZOBACTAM 3.375 GM VIAL IVPB ONE ×3 (01:10→17:36)
[2021-04-20] MEDS: PIPERACILLIN/TAZOB 3.375 GM 3.375 GM in DEXTROSE 5%-WATER - 50 ML IVPB SCH ×3 (01:13→17:38)
[2021-04-20] MEDS: MORPHINE SULFATE 2 MG/ML VIAL IVPUSH PRN ×5 (01:54→21:38)
[2021-04-20] MEDS: NYSTATIN 500,000 UNITS/5 ML SUSPENSION PO SCH ×4 (05:17→23:16)
[2021-04-20] MEDS: HEPARIN SOD,PORK IN 0.45% NACL 25,000 UNIT/500 ML INFUS.BAG IVPB SCH (05:38)
[2021-04-20 07:52] LABS: BASO % 0.4 % (0-2.0); EOS % 0.3 % (0-4.5); HEMATOCRIT 24.4 % (32.4-45.2); HEMOGLOBIN 8.6 GM/dL (10.7-15.3); LYMPH % 2.4 % (8-40); MCH 28.6 pg (25.7-33.7); MCHC 35.5 g/dl (32.0-36.0); MEAN CELL VOLUME 80.5 fl (80-96); MEAN PLT VOLUME 8.7 fl (7.5-11.1); MONO % 3.7 % (3.8-10.2); NEUT % 93.2 % (42.8-82.8); PLATELET COUNT 131 10^3/uL (134-434); RBC 3.02 M/mm3 (3.60-5.2); RDW 17.8 % (11.6-15.6); WHITE BLOOD COUNT 17.3 K/mm3 (4.0-10.0)
[2021-04-20] MEDS ORDERED: HEPARIN NA (PORCINE) 5,000 UNITS/ML 1ML VIAL IVPUSH PRN (08:24)
[2021-04-20 08:53] LABS: BILIRUBIN,TOTAL 1.6 mg/dL (0.2-1); CALCIUM 7.1 mg/dL (8.5-10.1); CREATININE 0.6 mg/dL (0.55-1.3); MAGNESIUM 1.5 mg/dL (1.8-2.4)
[2021-04-20 08:59] LABS: ANISOCYTOSIS 0; MACROCYTOSIS 0; PLATELET ESTIMATE DECREASED
[2021-04-20] MEDS: NAPH,MB-DB/K PH,MBDB POWDER PACKET PO SCH ×2 (09:32→21:39)
[2021-04-20] MEDS: HEPARIN - 25,000 UNIT in SODIUM CHLORIDE 495 ML IV SCH ×2 (10:19→23:56)
[2021-04-20] MEDS: VANCOMYCIN IVPB SCH ×2 (10:34→23:15)
[2021-04-20] MEDS: HEPARIN NA (PORCINE) 5,000 UNITS/ML 1ML VIAL IVPUSH PRN (10:35)
[2021-04-20] MEDS ORDERED: POTASSIUM CHLORIDE TABS 20 MEQ TABLET.ER (FP) PO ONE (13:00)
[2021-04-20] MEDS ORDERED: MAGNESIUM 2GM/50ML STERILE WATER IVPB IVPB ONE (13:00)
[2021-04-20] MEDS ORDERED: SPIRONOLACTONE 25 MG TABLET PO ONE (13:00)
[2021-04-20] MEDS ORDERED: PT OWN MED DRAWER 7, Y5N ONE (21:36)
[2021-04-20] MEDS: CHLORHEXIDINE GLUCONATE 4% CLEANSER FOR DECOLONIZATION TP SCH (23:15)
[2021-04-21] MEDS ORDERED: DEXTROSE 5%-WATER - 50 ML IVPB ONE (02:09)
[2021-04-21] MEDS ORDERED: PIPERACILLIN/TAZOBACTAM 3.375 GM VIAL IVPB ONE (02:09)
[2021-04-21] MEDS: MORPHINE SULFATE 2 MG/ML VIAL IVPUSH PRN (02:12)
[2021-04-21] MEDS: PIPERACILLIN/TAZOB 3.375 GM 3.375 GM in DEXTROSE 5%-WATER - 50 ML IVPB SCH (02:12)
[2021-04-21 04:00] VITALS: TEMP 98.2
[2021-04-21 06:20] VITALS: BP 137/65; PULSE 70
== END 2021-04-21 06:15 | disposition short-term general hospital (02) | DRG 871 ==
LOC: JER 19:15 → JERBED 04-07 01:35 → JICU 04-07 19:25 → J2W 04-12 21:45
PROVIDERS: ADMIT Internal Medicine; ATTEND Family Medicine
PROC: 30233N1 Transfusion of Nonautologous Red Blood Cells into Peripheral Vein, Percutaneous Approach (ICD-10-PCS; principal; 2021-04-09)
DX: A41.51 Sepsis due to Escherichia coli [E. coli] (principal); G93.41 Metabolic encephalopathy; I81 Portal vein thrombosis; K55.069 Acute infarction of intestine, part and extent unspecified; C22.9 Malignant neoplasm of liver, not specified as primary or secondary; M62.82 Rhabdomyolysis; N17.9 Acute kidney failure, unspecified; E87.2 Acidosis; E87.1 Hypo-osmolality and hyponatremia; I24.8 Other forms of acute ischemic heart disease; I82.890 Acute embolism and thrombosis of other specified veins; C78.6 Secondary malignant neoplasm of retroperitoneum and peritoneum; R18.8 Other ascites; J90 Pleural effusion, not elsewhere classified; C22.0 Liver cell carcinoma; D68.9 Coagulation defect, unspecified; D69.6 Thrombocytopenia, unspecified; E80.6 Other disorders of bilirubin metabolism; K81.9 Cholecystitis, unspecified; K76.9 Liver disease, unspecified; K72.90 Hepatic failure, unspecified without coma; R74.01 Elevation of levels of liver transaminase levels; D72.829 Elevated white blood cell count, unspecified; E83.42 Hypomagnesemia; E87.6 Hypokalemia; D64.9 Anemia, unspecified; N18.9 Chronic kidney disease, unspecified; E86.0 Dehydration; R19.7 Diarrhea, unspecified
CPT/HCPCS: 36415; 36430; 36511; 70450-TC; 71045-TC-FY; 72125-TC; 72170-TC-FY; 74176-TC; 74177-TC; 74178-TC; 74181-TC; 76705-TC; 80048; 80053; 80076; 80307; 81003; 82105; 82140; 82248; 82272; 82378; 82550; 82553; 82607; 82728; 82746; 82747; 82803; 82962; 83516; 83540; 83550; 83605; 83690; 83735; 84100; 84439; 84443; 84466; 84484; 85014; 85025; 85027; 85045; 85384; 85610; 85730; 86038; 86140; 86301; 86304; 86704; 86706; 86707; 86708; 86709; 86803; 86850; 86900; 86901; 86922; 87040; 87077; 87086; 87186; 87324; 87340; 87389; 87449; 93005; 93010; 93306-TC; 97116-GP; 97161-GP; 99285-25; C9803; G0480; J0131; J1644; P9038; P9058; Q9967; U0003; U0005